=== PATIENT | female | born 1945 | race Caucasian/White ===

== ENCOUNTER 2017-09-29 08:08 | Inpatient (IN) | payer OTHER ==
[~2017-09-29 08:08] MED LIST: ROPIVACAINE 0.2% 80 MG, EPINEPHrine 0.2 MG, KETOROLAC TROMETHAMINE 30 MG in SYRINGE 0 ML IU ONE; TRANEXAMIC ACID 3,000 MG in NS 50 ML IRR ONE; TRANEXAMIC ACID 3,000 MG/50 ML BAG IRR ONE
[2017-09-29] MEDS ORDERED: DEXAMETHASONE 4 MG/ML VIAL IVP ONE (09:20)
[2017-09-29] MEDS ORDERED: ACETAMINOPHEN 325 MG TAB PO ONE (09:20)
[2017-09-29] MEDS ORDERED: ceFAZolin 2 GM/SWFI 2 GM/20 ML SYR IVP ONE (09:20)
[2017-09-29] MEDS ORDERED: FAMOTIDINE 20 MG TAB PO ONE (09:20)
--- NOTE | 2017-09-29 10:06 | PDANEPAE ---
ANE History of Present Illness 72 yo female with L hip OA. ANE Past Medical History - Cardiovascular History Hx Hypertension: No Hx Arrhythmias: No Hx Chest Pain: No Hx Coronary Artery / Peripheral Vascular Disease: No Hx CHF / Valvular Disease: No Hx Palpitations: No - Pulmonary History Hx COPD: No Hx Asthma/Reactive Airway Disease: No Hx Recent Upper Respiratory Infection: No Hx Oxygen in Use at Home: No Hx Sleep Apnea: No Sleep Apnea Screening Result - Last Documented: Negative - Neurologic History Hx Cerebrovascular Accident: No Hx Seizures: No Hx Dementia: No - Endocrine History Hx Diabetes: No Hypothyroid: Yes Endocrine History Comment: h/o goiter with subtotal thyroid resection. - Renal History Hx Renal Disorders: No - Liver History Hx Hepatic Disorders: No - Neurological & Psychiatric Hx Hx Neurological and Psychiatric Disorders: Yes Neurological / Psychiatric History Comment: depression/anxiety - Cancer History Hx Cancer: No - Congenital Disorder History Hx Congenital Disorders: No - GI History GERD: no Hx Gastrointestinal Disorders: No - Other Health History Other Health History: dentures - Chronic Pain History Chronic Pain: No - Surgical History Prior Surgeries: rotator cuff repair 11/25 ANE Review of Systems Review of systems is: negative Review of Systems: - Exercise capacity METS (RN): 4 METS - Systems Constitutional: Reports: no symptoms Cardiac: Reports: no symptoms Respiratory: Reports: no symptoms Muscolosketal: Reports: joint pain ANE Patient History - Allergies Allergies/Adverse Reactions: gluten Allergy (Severe, Verified 09/29/17 09:34) - Home Medications Home Medications: Calcium Carbonate [Oyster Shell Calcium 500 mg (*)] 500 mg PO DAILY 08/16/17 [ Last Taken 09/22/17] Cholecalciferol Vit D3 [Vitamin D3 (*)] 1,000 units PO DAILY 08/16/17 [Last Taken 09/22/17] Clobetasol 0.05% [Temovate Ointment] 1 blayne TP BID PRN 08/16/17 [Last Taken Unknown] Cyanocobalamin [Vitamin B12 (*)] 1,000 mcg PO DAILY 08/16/17 [Last Taken ] Denosumab [Prolia] 60 mg SQ .[id number] 08/16/17 [Last Taken 07/01/17] Docusate Sodium [Colace 100 MG (*)] 100 mg PO BID PRN 08/16/17 [Last Taken 09/27] Estrogens,Conjugated [Premarin Vaginal (*)] 1 blayne VG Q3D 08/16/17 [Last Taken ] Fluticasone Nasal [Flonase Nasal [place] (RX)] 1 sprays NASAL DAILY PRN 08/16/17 [ Last Taken 09/01/17] Herbals/Supplements -Info Only 1 ea PO DAILY 08/16/17 [Last Taken 09/28/17] LORazepam [Ativan (*)] 0.5 mg PO DAILY PRN 08/16/17 [Last Taken 09/28/17] Levothyroxine [Synthroid 100 mcg (*)] 100 mcg PO DAILY06 08/16/17 [Last Taken ] Lidocaine [Lidocaine 4% cream] 1 blayne TP DAILY PRN 08/16/17 [Last Taken 09/22/17] Multivitamins [Multivitamin (*)] 1 each PO DAILY 08/16/17 [Last Taken Unknown] Nystatin/Triamcin [Nystatin-Triamcinolone Ointm] 1 blayne TP DAILY PRN 08/16/17 [ Last Taken 09/15/17] Venlafaxine Xr [Effexor Xr 37.5MG (*)] 37.5 mg PO DAILY 08/16/17 [Last Taken ] traMADol [Ultram 50 mg (*)] 50 mg PO TID PRN 08/16/17 [Last Taken 09/28/17] - NPO status NPO Since - Liquids (Date): 09/29/17 NPO Since - Liquids (Time): 06:00 (apple juice) NPO Since - Solids (Date): 09/28/17 - Anes Hx Anes Hx: no prior problems - Smoking Hx Smoking Status: Never smoked Marijuana use: No - Family Anes Hx Family Anes Hx: neg - N/A Family Hx Anesthesia Complications: none ANE Labs/Vital Signs - Vital Signs Vital Signs: reviewed preoperatively; see RN documention for details Height: 165.1 cm Weight: 65.771 kg ANE Physical Exam - Airway Neck exam: FROM Mallampati Score: Class 2 Mouth exam: dentures - Pulmonary Pulmonary: clear to auscultation - Cardiovascular Cardiovascular: regular rate and rhythym - ASA Status ASA Status: II ANE Anesthesia Plan Anesthesia Plan: spinal
[2017-09-29] MEDS ORDERED: fentaNYL 100 MCG/2 ML INJ ONE (10:10)
[2017-09-29] MEDS ORDERED: PROPOFOL/EMULSION 500 MG/50 ML BOTTLE IV ONE (10:10)
--- NOTE | 2017-09-29 10:24 | PDHPUP ---
History & Physical Update H&P update statement: This history and physical update is based on an assessment of the patient which was completed after admission or registration (within 24 hours), but prior to the surgery/procedure. H&P update: H&P reviewed & patient examined, no change in patient's condition since H&P completed
[2017-09-29] MEDS ORDERED: fentaNYL 100 MCG/2 ML INJ IVP PRN (11:16)
[2017-09-29] MEDS ORDERED: OXYCODONE/APAP 5/325 TAB PO PRN (11:16)
[2017-09-29] MEDS ORDERED: DIAZEPAM 10 MG/2 ML SYR IVP PRN (11:16)
[2017-09-29] MEDS ORDERED: NALOXONE HCL 0.4 MG/ML INJ IVP PRN (11:16)
[2017-09-29] MEDS ORDERED: ACETAMINOPHEN 500 MG TAB PO PRN (11:16)
[2017-09-29] MEDS ORDERED: ONDANSETRON 4 MG/2 ML VIAL IVP PRN ×2 (11:16→11:29)
[2017-09-29] MEDS ORDERED: PROMETHAZINE HCL 25 MG/ML INJ IVP PRN ×2 (11:16→11:29)
[2017-09-29] MEDS ORDERED: NON-FORMULARY NEW DRUG (Fluticasone Nasal [Flonase Nasal Spray] 1 SPRAYS) NASAL PRN (11:28)
[2017-09-29] MEDS ORDERED: traMADol 50 MG TAB PO PRN (11:28)
[2017-09-29] MEDS ORDERED: LORazepam 0.5 MG TAB PO PRN (11:28)
[2017-09-29] MEDS ORDERED: TEMAZEPAM 15 MG CAP PO PRN (11:29)
[2017-09-29] MEDS ORDERED: LACTULOSE 20 GM/30 ML UDCUP PO PRN (11:29)
[2017-09-29] MEDS ORDERED: PROMETHAZINE HCL 25 MG SUPPR PR PRN (11:29)
[2017-09-29] MEDS ORDERED: POLYETHYLENE GLYCOL 3350 17 GM PKT PO PRN (11:29)
[2017-09-29] MEDS ORDERED: DIPHENOXYLATE/ATROPINE LOMOTIL 1 TAB PO PRN (11:29)
[2017-09-29] MEDS ORDERED: CYCLOBENZAPRINE 10 MG TAB PO PRN (11:29)
[2017-09-29] MEDS ORDERED: ONDANSETRON DISINTEGRATING 4 MG TAB PO PRN (11:29)
[2017-09-29] MEDS ORDERED: MAGNESIUM HYDROXIDE 30 ML UDCUP PO PRN (11:29)
[2017-09-29] MEDS ORDERED: METOCLOPRAMIDE 10 MG/2 ML VIAL IVP PRN (11:29)
[2017-09-29] MEDS ORDERED: BISACODYL 10 MG SUPP PR PRN (11:29)
[2017-09-29] MEDS ORDERED: diphenhydrAMINE 25 MG CAP PO PRN (11:29)
[2017-09-29] MEDS ORDERED: LR 1,000 ML IV SCH (11:30)
--- NOTE | 2017-09-29 11:31 | POSTOPPROG ---
Post Op Note Date of Operation: 09/29/17 Surgeon: Angel Vilchis Mortgage Advisor: mat vilchis Anesthesiologist: dr. anderson Anesthesia: Spinal Pre-op Diagnosis: left hip OA Post-op Diagnosis: same Indication: left hip pain due to OA that failed conservative measures Procedure: L LINDSEY ant approach Findings: severe hip OA Inf/Abcess present in the surg proc area at time of surgery?: No EBL: 100-500
[2017-09-29] MEDS ORDERED: LR 1,000 ML IV ONE (11:48)
[2017-09-29] MEDS ORDERED: FLUTICASONE NASAL 120 SPRAYS/16 GM MDI NS PRN (11:53)
[2017-09-29] MEDS: ACETAMINOPHEN 325 MG TAB PO SCH ×3 (13:28→23:29)
[2017-09-29] MEDS: oxyCODONE IR 5 MG TAB PO PRN ×3 (14:50→20:52)
[2017-09-29] MEDS: ceFAZolin 2 GM/DEXTROSE 100 ML IV SCH (18:12)
[2017-09-29] MEDS ORDERED: hydrALAZINE 20 MG/ML VIAL IVP PRN (20:00)
[2017-09-29] MEDS: ASPIRIN EC 81 MG TAB PO SCH (20:49)
[2017-09-29] MEDS: FAMOTIDINE 20 MG TAB PO SCH (20:51)
[2017-09-29] MEDS: SENNOSIDES/DOCUSATE SODIUM TAB PO SCH (20:52)
--- NOTE | 2017-09-29 22:42 | GCON ---
[f rep st] CONSULTATION DATE OF CONSULTATION: 09/29/2017 REFERRING PHYSICIAN: Murali Prather MD REQUESTING PHYSICIAN: Dr. Isaías Prather. REASON FOR CONSULTATION: Medical opinion regarding extreme blood pressure elevations. HISTORY OF PRESENT ILLNESS: Margo Ravi is a 72-year-old female, who has undergone a left total hi p arthroplasty with Dr. Isaías Prather earlier today. She has degenerative arthritis and has failed conservative measures. Pre-surgery her blood pressures were normal. Post surgery she is having extr reginaldo blood pressure elevations with her 14:00 blood pressure reading 205/89. They have persisted with very elevated systolic blood pressures throughout the evening, although her last blood pressure on r ecord at 19:19 is 161/72. The patient is completely asymptomatic. She says her pain is very well co ntrolled, and she is about to go to sleep. The patient reports a history of white coat hypertension. Every time she gets her blood pressure aliyah en at a physician's office, it reads very elevated to this same degree and then she goes home and pawan cks her blood pressure on her 's blood pressure cuff, and she will have normal readings. PAST MEDICAL HISTORY: 1. Hypothyroidism, status post thyroidectomy. 2. White coat hypertension. PAST SURGICAL HISTORY: Rotator cuff surgery. MEDICATIONS: Please see computer record for a full detailed list. ALLERGIES: Gluten. SOCIAL HISTORY: No smoking. No alcohol. She drinks a glass of wine once a month. She lives with h er . REVIEW OF SYSTEMS: A complete review of systems was obtained. Review of systems is negative for con stitutional, HEENT, GI, pulmonary, cardiovascular, , Hematology, skin, muscular, endocrine, psychia tric. For positives and negatives, as under HPI. FAMILY HISTORY: Reviewed, noncontributory to the presenting complaint. PHYSICAL EXAMINATION: GENERAL: Well-developed, well-nourished female in no acute distress. VITAL S IGNS: Temperature 37.0, pulse 103. Blood pressure at its worst is 205/89. Prior to surgery 124/51. Saturating 95% on room air. EYES: Normal conjunctivae. Pupils are equal, round, and reactive to l ight. ENT: Normal ears and nose. Hearing is intact. Normal lips and teeth. Oropharynx is moist. NECK: Trachea is midline. No thyromegaly. CHEST: Normal effort. LUNGS: Clear to auscultation b ilaterally. CARDIOVASCULAR: Regular rhythm. No murmur. No lower extremity edema. ABDOMEN: Soft, nontender. No hepatosplenomegaly. SKIN: Warm, dry, intact. No rash. MUSCULOSKELETAL: No cyanos is or clubbing. Strength is 5/5 in upper and lower extremities. NEUROLOGIC: Cranial nerves are int act. Normal sensation to light touch. PSYCHIATRIC: Alert and oriented x3. Normal affect. Normal insight and judgment. Normal memory. IMAGING STUDIES: Pelvis x-ray post surgery shows excellent alignment of her left total hip arthropla sty. Medical records have been reviewed. I reviewed preoperative history and physical from Dr. Prather. I have personally spoke with physician medical practice assistant, Ashley Prather regarding this consultation and elevated blood pressures. ASSESSMENT AND PLAN: Hypertension: She has a history of white coat hypertension, and I do suspect t hat is what is going on here. I do suspect her blood pressure will come down on its own without otoniel tment. She is currently asymptomatic. We can use intravenous hydralazine as needed for extreme bloo d pressure elevations, but I do not think we need to jump to that at this time. Her preoperative blo od pressures were very normal, which also argues against underlying essential chronic hypertension. Left hip total arthroplasty secondary to degenerative arthritis. She is doing very well with good pa in control post surgery. Hypothyroidism, status post thyroidectomy. We will check a TSH in the morning. Thank you very much for this consultation. Hospitalist Medicine will continue to follow along mckenzie thorntonut her hospitalization. /[id number]/MODL
[2017-09-30] MEDS: ceFAZolin 2 GM/DEXTROSE 100 ML IV SCH (01:54)
--- NOTE | 2017-09-30 01:57 | GOP ---
[f rep st] OPERATIVE REPORT DATE OF OPERATION: 09/29/2017 SURGEON: Murali Prather MD SERVICE TRANSFORMER REPAIR SUPERVISOR: ZABRINA Villalobos ANESTHESIA: Spinal. PREOPERATIVE DIAGNOSIS: Left hip osteoarthritis. POSTOPERATIVE DIAGNOSIS: Left hip osteoarthritis. PROCEDURE PERFORMED: Left total hip arthroplasty with x-ray. FINDINGS: ESTIMATED BLOOD LOSS: 200 cc. INDICATIONS: The patient has progressively worsening arthritis of the hip which has failed medical m anagement. The patient understands the treatment options including continued non-operative care and has selected surgical intervention. The patient has decided to undergo total hip arthroplasty via th e direct anterior approach, understanding the risks of the procedure including, but not limited to, n eurovascular injury, infection, persistent pain, component wear and loosening, deep venous thrombosis , pulmonary embolism, limb length inequality, hip instability (including dislocation), and intra-oper ative fractures. DESCRIPTION OF PROCEDURE: After proper identification of the patient including verification and nkechi ing the surgical site, the patient was brought to the operating room and placed in the supine positio n. All bony prominences were well padded. Anesthesia was induced without complication and intraveno us prophylactic antibiotics were administered prior to skin incision. The operative leg was placed in the Trumpf Arch table extension and the well leg in a Yellofin leg ho lder. The patient was prepped and draped in the usual sterile fashion. The C-arm was draped for int ra-operative fluoroscopy to check acetabular position, femoral component position including leg lengt h and femoral offset. Attention was then drawn to surgical exposure of the hip. An incision was made with a #10 Bard Cheryl r blade starting 3 cm lateral and 3 cm distal to the anterior superior iliac spine measuring 8-10 cm and coursing distally toward the greater trochanter. The skin and subcutaneous tissues were divided sharply down to the fascia melissa. The fascia melissa was incised in line with the skin incision exposing the underlying tensor fascia melissa muscle. The muscle was bluntly elevated from the fascia and the f irst extracapsular Cobra retractor was placed laterally at the junction of the superior femoral neck and greater trochanter. The lateral femoral circumflex vessels were identified, cauterized, and divi ded with the Aquamantys bipolar cautery. The deep investing fascia of the TFL was divided to allow p jessi mobilization of the muscle preventing damage during the retraction. The reflected head of the rectus femoris muscle was elevated off the anterior hip capsule and a medial Cobra retractor was plac ed just proximal to the lesser trochanter. The anterior capsulotomy was made sharply from the superolateral acetabulum to the saddle junction of the superior femoral neck and greater trochanter, then coursing inferomedial towards the lesser troc hanter. The retractors were then placed in the intracapsular position for femoral neck osteotomy. C orresponding to pre-operative templating, the osteotomy was made with the oscillating saw carefully p rotecting the greater trochanter and soft tissues. The femoral head was removed from the acetabulum with a corkscrew and confirmed to be severely arthritic with exposed bone, deformity and osteophytes. Similar findings were confirmed in the acetabulum. The Arch table extension was then placed in 40 degrees external rotation. Attention was then drawn to the acetabular preparation. After placement of the anterior and posterio r Cobra retractors outside the labrum and intracapsular, the circumferential labrum was removed sharp ly. The foveal contents were then removed and hemostasis obtained with cautery. The first reamer selected was sized using the removed femoral head. Reaming began with medialization and then commenced in 2 mm increments at 45 degrees of abduction and 15 degrees of anteversion using fluoroscopic navigation. Reaming ceased 1 mm less than the definitive acetabular component and lurdes esponded to the pre-operative templating. The final acetabular component was inserted using fluorosc opy to achieve proper orientation yielding excellent purchase and stability in the acetabulum. The f inal acetabular liner was then placed and its seating confirmed. Attention was then turned to the femur. The Arch table extension was placed in extension and adducti on, delivering the osteotomized femoral neck into the wound. A 2-pronged femoral elevator was placed at the calcar and another at the tip of the greater trochanter. The posterolateral capsule was rele ased with cautery allowing mobilization of the femur lateral and anterior for preparation. The exter nal rotators were visualized and preserved. A curette and rongeur were used to open the starting poi nt for broaching. Serial broaching started with the #0 broach and ended with the broach that exhibit ed excellent fit in the proximal femur. A change in pitch during mallet strikes was accompanied by t he inability to advance the broach any further. The trial reduction was performed and fluoroscopic n avigation was utilized to check limb length. Adjustments were made to equalize limb length according ly. After the final trials were accepted they were removed and the wound was copiously lavaged. The femo ral component was seated to the same depth as the final broach and the femoral head was impacted onto the clean trunnion. The hip was then reduced for the final time and once more fluoroscopy was used to check that limb length equality was achieved. The wound was irrigated and closed in layers, the fascia melissa with 2-0 Quill, the subcutaneous tissue with 2-0 Quill, and the skin with Dermabond. Sterile dressings were applied. Final sharps and spon ge counts were accurate. The patient was then transferred to a hospital bed and brought to the [facility] room in stable condition. IMPLANTS: Accolade II size 4M, 127 acetabular component, 50 mm Tritanium. Liner is a Trident X3 32 mm. Head is a Biolox Delta 32 mm minus 4. /[id number]/MODL
[2017-09-30] MEDS: oxyCODONE IR 5 MG TAB PO PRN (03:13)
[2017-09-30 05:14] VITALS: TEMP 98.2
[2017-09-30] MEDS: ACETAMINOPHEN 325 MG TAB PO SCH ×2 (05:38→11:56)
[2017-09-30] MEDS ORDERED: LEVOTHYROXINE 100 MCG TAB PO SCH ×2 (06:00→09:11)
[2017-09-30 06:13] LABS: % IMMATURE GRANULYOCYTES 0.5 % (0.0-1.1); ABSOLUTE IMMATURE GRANULOCYTES 0.06 10^3/uL (0.00-0.10); ADD DIFF? NO; ADD MORPH? NO; ADD SCAN? NO; ATYPICAL LYMPHOCYTE FLAG 0 (0-99); FRAGMENT RBC FLAG 0 (0-99); HEMATOCRIT 37.6 % (38.0-47.0); HEMOGLOBIN 12.6 g/dL (12.6-16.3); LEFT SHIFT FLG 0 (0-99); LIPEMIA HEMOLYSIS FLAG 80 (0-99); MEAN CELL HEMOGLOBIN 31.7 pg (27.9-34.1); MEAN CELL HEMOGLOBIN CONCENTR. 33.5 g/dL (32.4-36.7); MEAN CELL VOLUME 94.7 fL (81.5-99.8); MEAN PLATELET VOLUME 10.3 fL (8.7-11.7); PLATELET CLUMPS FLAG 20 (0-99); PLATELET COUNT 280 10^3/uL (150-400); RED BLOOD CELL COUNT 3.97 10^6/uL (4.18-5.33); RED CELL DISTRIBUTION WIDTH 12.5 % (11.5-15.2)
[2017-09-30 06:27] LABS: ANION GAP 11 mEq/L (8-16); CALCIUM 9.3 mg/dL (8.5-10.4); CARBON DIOXIDE 26 mEq/l (22-31); CHLORIDE 105 mEq/L (97-110); CREATININE 0.7 mg/dL (0.6-1.0); GLOMERULAR FILTRATION RATE > 60; GLUCOSE 127 mg/dL (70-100); POTASSIUM 4.3 mEq/L (3.5-5.2); SODIUM 142 mEq/L (134-144)
[2017-09-30 07:43] VITALS: RESP 20
[2017-09-30] MEDS: FAMOTIDINE 20 MG TAB PO SCH (08:09)
[2017-09-30] MEDS: ASPIRIN EC 81 MG TAB PO SCH (08:09)
[2017-09-30] MEDS: SENNOSIDES/DOCUSATE SODIUM TAB PO SCH (08:10)
--- NOTE | 2017-09-30 08:26 | HOSPPROG ---
Hospitalist Progress Note Assessment/Plan: Margo is a 72 y/o female who underwent a left total hip arthroplasty. Hospitalist team was ask to consult in regards to hypertension. Today is my first encounter with the patient, chart reviewed. *labile htn -per the patient, she has white coat hypertension -was given hydralazine this morning -normotensive on admission, but has had a systolic > 140 since then *Hypothyroidism s/p thyroidectomy/ concern for hyperthyroidism -TSH is .1, may be on too high of dose of Synthroid -recommending 75 mcg -she needs to get T3 and T4 studies done with her PCP *s/p left total hip arthroplasty -doing well Subjective: Margo is feeling well. Objective: Vital Signs Temp Pulse Resp BP Pulse Ox 36.8 C 84 20 191/64 H 95 09/30/17 04:00 09/30/17 07:40 09/30/17 07:40 09/30/17 07:40 09/30/17 07:40 Laboratory Results 09/30/17 05:51 09/30/17 05:51 09/29/17 09/30/17 10/01/17 05:59 05:59 05:59 Intake Total 1900 Output Total 3100 500 Balance -1200 -500 - Physical Exam Constitutional: no apparent distress, appears nourished, not in pain Eyes: anicteric sclera Ears, Nose, Mouth, Throat: hearing normal Cardiovascular: regular rate and rhythym Respiratory: no respiratory distress Skin: warm Neurologic: AAOx3 Psychiatric: interacting appropriately, not anxious ICD10 Worksheet Patient Problems: Problems Problem Status Onset Hypertension Acute - ICD10 Problem Qualifiers (1) Hypertension
[2017-09-30] MEDS ORDERED: VENLAFAXINE XR 37.5 MG CAP PO SCH (09:00)
[2017-09-30 10:07] VITALS: BP 163/62
[2017-09-30 10:37] VITALS: PULSE 83; O2SAT 96
--- NOTE | 2017-09-30 10:52 | SOAPPROG ---
SOAP Progress Note Assessment/Plan: Assessment: Pt is doing well POD 1 s/p L LINDSEY pain is well controlled on oxycodone anemia: level expectedi nitially postop VTE ppx: recommend ASA 81 mg BID for 4 weeks D/c planning: d/c to home today Plan: 09/30/17 10:52 Objective: Vital Signs Temp Pulse Resp BP Pulse Ox 36.8 C 83 20 163/62 H 96 09/30/17 04:00 09/30/17 07:40 09/30/17 07:40 09/30/17 10:07 09/30/17 07:40 Laboratory Results 09/30/17 05:51 09/30/17 05:51 09/29/17 09/30/17 10/01/17 05:59 05:59 05:59 Intake Total 1900 500 Output Total 3100 800 Balance -1200 -300 ICD10 Worksheet Patient Problems: Problems Problem Status Onset Hypertension Acute Primary localized osteoarthritis of left hip Acute
--- NOTE | 2017-09-30 11:57 | ASDISCHSUM ---
Discharge Information Plan Status:Home with No Needs Medically Cleared to Leave:09/29/2017 Discharge Date:09/29/2017 CM D/C Disposition:Home, Routine, Self-Care ADT D/C Disposition:Home, Routine, Self-Care Projected Discharge Date:09/29/2017 Transportation at D/C:Family Discharge Delay Reason: Follow-Up Date:09/29/2017 Discharge Slot: Final Diagnosis: Placement Information Patient Contact Information Contact Name:RASHI Relationship: Address:[address] City:[place] [facility] Phone: [facility]/Zip Code:[place] [address] Email: Financial Information Financial Class:Medicare Advantage Plans Primary Plan Desc:[facility] [employer] PLANS Primary Plan Number:[id number] Secondary Plan Desc: Secondary Plan Number: Assessment Information Case Management Discharge Plan Note Case Management Discharge Discharge Order Complete? Answers: Yes Patient to Obtain Answers: via Family Medications Transportation Arranged Answers: Family/Friends Discharge Comments Notes: Pt s/p Kapil LINDSEY. Discharging home today with no CM needs. IM signed and in chart. Date Signed: 09/30/2017 11:50 AM Electronically Signed By:MICHELLE Morgan Intervention Information
[2017-10-01] MEDS ORDERED: LEVOTHYROXINE 75 MCG TAB PO SCH (06:00)
== END 2017-09-30 12:42 | disposition home or self-care (01) | DRG 470 ==
LOC: F3E 08:08 → F3N 12:45
PROVIDERS: ADMIT Orthopaedic Surgery; ATTEND Orthopaedic Surgery
PROC: 0SRB04Z Replacement of Left Hip Joint with Ceramic on Polyethylene Synthetic Substitute, Open Approach (ICD-10-PCS; principal; 2017-09-29 12:15)
DX: M16.12 Unilateral primary osteoarthritis, left hip (principal); E03.9 Hypothyroidism, unspecified; R03.0 Elevated blood-pressure reading, without diagnosis of hypertension
CPT/HCPCS: 97116-GP; 97161-GP; 97165-GO; G8987-GO-CI; G8988-GO-CI; G8989-GO-CI; J0171; J0360; J0690; J1100; J1885; J2704; J2795; J3010

== ENCOUNTER → 2019-02-22 | Outpatient (CLI) | payer OTHER | LOC: FIMAGING 07:34 | PROVIDERS: ATTEND Physician Assistant | DX: M16.11 Unilateral primary osteoarthritis, right hip (principal); M25.451 Effusion, right hip ==